=== PATIENT | female | born 2000 | race Caucasian/White ===

== ENCOUNTER 2022-10-16 13:28 | Day surgery (SDC) | payer OTHER ==
[2022-10-09 10:10] VITALS: BMI 23.2
[2022-10-16 13:54] VITALS: TEMP 97.8
[2022-10-16 16:10] VITALS: BP 104/60; PULSE 84; RESP 20
== END 2022-10-16 16:30 | disposition home or self-care (01) ==
LOC: FASU-ENDO 13:28
PROVIDERS: ATTEND Internal Medicine Gastroenterology
PROC: 0DB68ZX Excision of Stomach, Via Natural or Artificial Opening Endoscopic, Diagnostic (ICD-10-PCS; 2022-10-16)
PROC: 0DB48ZX Excision of Esophagogastric Junction, Via Natural or Artificial Opening Endoscopic, Diagnostic (ICD-10-PCS; 2022-10-16)
PROC: 0DB98ZX Excision of Duodenum, Via Natural or Artificial Opening Endoscopic, Diagnostic (ICD-10-PCS; principal; 2022-10-16 15:37)
DX: K29.50 Unspecified chronic gastritis without bleeding (principal); K21.00 Gastro-esophageal reflux disease with esophagitis, without bleeding; Z87.19 Personal history of other diseases of the digestive system
CPT/HCPCS: 81025; 88305-TC; 88342-TC